=== PATIENT | female | born 1960 | race American Indian/Alaskan Native ===

== ENCOUNTER 2018-06-03 17:39 | Observation (INO) | payer MEDICAID, OTHER ==
[2018-06-03] MEDS ORDERED: Lactated Ringers 1,000 ML IV ONE (18:06)
[2018-06-03] MEDS ORDERED: Acetaminophen 500 MG Tab PO ONE (18:20)
--- NOTE | 2018-06-03 18:21 | EDM.PDOC ---
ED HPI GENERAL MEDICAL PROBLEM - General Chief Complaint: Syncope Stated Complaint: FALL/HIT HEAD, VERTIGO Time Seen by Provider: 06/03/18 18:05 Source of Information: Reports: Patient, Old Records History Limitations: Reports: Other (patient is a poor historian) - History of Present Illness INITIAL COMMENTS - FREE TEXT/NARRATIVE: 57 yo NA female with a pHx of afib on anticoagulation presents after a syncopal spell in her home. Says she almost past out several times over the past several months, but due to not being comfortable with driving hasn't made it to a doctor. Gets her care between [place] and [facility]. Came here today via a friend as it was a little closer to her home in [place]. Has hyperthyroidism and is being tx'd for that with methimazole. Has not had any changes in her medications recently and has not taken any added doses by accident. Is a light smoker, but does not drink ETOH. Hit the back of her head she thinks on the floot when she passed out today. There was no bleeding, has a mild COLEMAN now. Has no hx of NV or CVA. No hx of DM. Does have a hx of bradycardia. Onset: Sudden Onset Date: 06/03/18 Onset Time: 16:45 Duration: Other (unsure) Location: Reports: Head (hit the occiput of her scalp when she fell.) Quality: Reports: Dull Severity: Mild Improves with: Reports: None Worsens with: Reports: None Context: Reports: Other (recurrent near syncope for a few months.) Associated Symptoms: Reports: Headaches (now since hitting her head only), Syncope. Denies: Chest Pain, Fever/Chills, Nausea/Vomiting, Shortness of Breath Treatments CONSTRUCTION SUPERINTENDENT: Reports: Other (see below) (none) Right Lower Head Pain Score (Numeric/FACES): 10 - Related Data Allergies Allergy/AdvReac Type Severity Reaction Status Date / Time No Known Allergies Allergy Verified 06/03/18 17:56 Home Meds: Home Meds Cyanocobalamin (Vitamin B-12) [B-12] 500 mcg PO DAILY 06/03/18 [History] Doxepin [SINEquan] 10 mg PO BEDTIME 06/03/18 [History] Magnesium Oxide 400 mg PO DAILY 06/03/18 [History] Meclizine [Antivert] 25 mg PO Q6H PRN 06/03/18 [History] Methimazole [Tapazole] 5 mg PO DAILY 06/03/18 [History] Metoprolol Tartrate [Lopressor] 50 mg PO DAILY 06/03/18 [History] Oxybutynin [Oxybutynin ER] 5 mg PO DAILY 06/03/18 [History] Rivaroxaban [Xarelto] 20 mg PO DAILY 06/03/18 [History] Past Medical History HEENT History: Reports: Impaired Vision Cardiovascular History: Reports: Hypertension Psychiatric History: Reports: Depression - Past Surgical History Cardiovascular Surgical History: Reports: None Social & Family History - Tobacco Use Smoking Status *Q: Current Every Day Smoker Years of Tobacco use: 40 Packs/Tins Daily: 0.5 - Caffeine Use Caffeine Use: Reports: Coffee, Tea - Recreational Drug Use Recreational Drug Use: No ED ROS GENERAL - Review of Systems Review Of Systems: See Below Constitutional: Reports: No Symptoms HEENT: Reports: No Symptoms Respiratory: Reports: No Symptoms Cardiovascular: Reports: Lightheadedness Endocrine: Reports: No Symptoms GI/Abdominal: Reports: No Symptoms : Reports: No Symptoms Musculoskeletal: Reports: No Symptoms Skin: Reports: No Symptoms Neurological: Reports: Headache Psychiatric: Reports: No Symptoms - Physical Exam Exam: See Below Exam Limited By: No Limitations General Appearance: Alert, WD/WN, No Apparent Distress Eye Exam: Bilateral Eye: Normal Inspection Ears: Normal External Exam, Normal Canal, Hearing Grossly Normal, Normal TMs Nose: Normal Inspection, No Blood Throat/Mouth: Normal Inspection, Normal Lips, Normal Oropharynx, Normal Voice, No Airway Compromise Head Exam: Atraumatic, Normocephalic Neck: Normal Inspection, Supple, Non-Tender Respiratory/Chest: No Respiratory Distress, Lungs Clear, Normal Breath Sounds, No Accessory Muscle Use Cardiovascular: Regular Rate, Rhythm, No Edema, Bradycardia GI/Abdominal: Normal Bowel Sounds, Soft, Non-Tender, No Distention Neuro Exam (Abbreviated): Alert, Oriented, CN II-XII Intact, Normal Cognition, No Motor/Sensory Deficits Back Exam: Normal Inspection. No: CVA Tenderness (R), CVA Tenderness (L) Extremities: Normal Inspection, Normal Range of Motion, Non-Tender, No Pedal Edema Psychiatric: Normal Affect, Normal Mood Skin Exam: Warm, Dry, Intact, Normal Color, No Rash Course - Vital Signs Text/Narrative:: Hospitalist Janeen, here now 1921h. Last Recorded V/S: Last Vital Signs Temp 36.3 C 06/03/18 17:58 Pulse 46 L 06/03/18 17:58 Resp 16 06/03/18 17:58 BP 153/67 H 06/03/18 17:58 Pulse Ox 97 06/03/18 17:58 - Orders/Labs/Meds Orders: Active Orders 24 hr Category Date Time Status Cardiac Monitoring [RC] .As Directed Care 06/03/18 18:06 Active CULTURE URINE [RM] Stat Lab 06/03/18 18:48 Received Labs: Laboratory Tests 06/03/18 06/03/18 06/03/18 Range/Units 18:13 18:13 18:22 WBC 11.4 H (4.5-11.0) K/uL RBC 4.07 (3.30-5.50) M/uL Hgb 11.8 L (12.0-15.0) g/dL Hct 37.8 (36.0-48.0) % MCV 93 (80-98) fL MCH 29 (27-31) pg MCHC 31 L (32-36) % Plt Count 240 (150-400) K/uL Sodium (140-148) mmol/L Potassium (3.6-5.2) mmol/L Chloride (100-108) mmol/L Carbon Dioxide (21-32) mmol/L Anion Gap (5.0-14.0) mmol/L BUN (7-18) mg/dL Creatinine (0.6-1.0) mg/dL Est Cr Clr Drug Dosing mL/min Estimated GFR (MDRD) (>60) Glucose (74-106) mg/dL Calcium (8.5-10.1) mg/dL Troponin I 0.022 (0.000-0.056) ng/mL TSH, Ultra Sensitive 38.144 H (0.358-3.740) uIU/mL Urine Color Yellow Urine Appearance Slightly cloudy Urine pH 7.0 (4.5-8.0) Ur Specific [place] 1.010 (1.008-1.030) Urine Protein Negative (NEGATIVE) mg/dL Urine Glucose (UA) Normal (NEGATIVE) mg/dL Urine Ketones Negative (NEGATIVE) mg/dL Urine Occult Blood Moderate (NEGATIVE) Urine Nitrite Negative (NEGATIVE) Urine Bilirubin Negative (NEGATIVE) Urine Urobilinogen Normal (NORMAL) mg/dL Ur Leukocyte Esterase Small (NEGATIVE) Urine RBC 5-10 H (0-5) Urine WBC 5-10 H (0-5) Ur Epithelial Cells Many Amorphous Sediment Many Urine Bacteria Not seen Urine Mucus Not seen 06/03/18 Range/Units 19:05 WBC (4.5-11.0) K/uL RBC (3.30-5.50) M/uL Hgb (12.0-15.0) g/dL Hct (36.0-48.0) % MCV (80-98) fL MCH (27-31) pg MCHC (32-36) % Plt Count (150-400) K/uL Sodium 142 (140-148) mmol/L Potassium 3.8 (3.6-5.2) mmol/L Chloride 105 (100-108) mmol/L Carbon Dioxide 25 (21-32) mmol/L Anion Gap 11.6 (5.0-14.0) mmol/L BUN 13 (7-18) mg/dL Creatinine 1.0 (0.6-1.0) mg/dL Est Cr Clr Drug Dosing 57.41 mL/min Estimated GFR (MDRD) 57 L (>60) Glucose 103 (74-106) mg/dL Calcium 8.7 (8.5-10.1) mg/dL Troponin I (0.000-0.056) ng/mL TSH, Ultra Sensitive (0.358-3.740) uIU/mL Urine Color Urine Appearance Urine pH (4.5-8.0) Ur Specific [place] (1.008-1.030) Urine Protein (NEGATIVE) mg/dL Urine Glucose (UA) (NEGATIVE) mg/dL Urine Ketones (NEGATIVE) mg/dL Urine Occult Blood (NEGATIVE) Urine Nitrite (NEGATIVE) Urine Bilirubin (NEGATIVE) Urine Urobilinogen (NORMAL) mg/dL Ur Leukocyte Esterase (NEGATIVE) Urine RBC (0-5) Urine WBC (0-5) Ur Epithelial Cells Amorphous Sediment Urine Bacteria Urine Mucus Meds: Medications Discontinued Medications Generic Name Dose Route Start Last Admin Trade Name Freq PRN Reason Stop Dose Admin Acetaminophen 1,000 mg 06/03/18 18:20 Tylenol Extra Strength PO 06/03/18 18:21 ONETIME ONE Lactated Ringer's 1,000 mls @ 1,000 mls/hr 06/03/18 18:06 06/03/18 18:24 Ringers, Lactated IV 06/03/18 19:05 1,000 mls/hr BOLUS ONE Administration Departure - Departure Time of Disposition: 19:24 Disposition: Refer to Observation Condition: Fair Clinical Impression: Bradycardia, Hyperthyroidism Syncope Qualifiers: Syncope type: unspecified Qualified Code(s): R55 - Syncope and collapse - Discharge Information *PRESCRIPTION DRUG MONITORING PROGRAM REVIEWED*: No *COPY OF PRESCRIPTION DRUG MONITORING REPORT IN PATIENT ISABELLE: No Referrals: PCP,None [Primary Care Provider] - Forms: ED Department Discharge - My Orders Last 24 Hours: My Active Orders 06/03/18 18:06 Cardiac Monitoring [RC] .As Directed 06/03/18 18:48 CULTURE URINE [RM] Stat - Assessment/Plan Last 24 Hours: My Active Orders 06/03/18 18:06 Cardiac Monitoring [RC] .As Directed 06/03/18 18:48 CULTURE URINE [RM] Stat
[2018-06-03] MEDS ORDERED: HYDROmorphone 1 MG/ML Syringe IVPUSH ONE (20:03)
[2018-06-03] MEDS ORDERED: Ondansetron 4 MG/2 ML SDV IVPUSH ONE (20:03)
[2018-06-03] MEDS: Sodium Chloride 0.9% 1,000 ML IV SCH ×2 (20:35→21:16)
--- NOTE | 2018-06-03 20:49 | PCM.HP ---
H&P History of Present Illness - General Date of Service: 06/03/18 Admit Problem/Dx: Admission Diagnosis/Problem Admission Diagnosis/Problem Syncope and collapse History Limitations: Reports: No Limitations - History of Present Illness Initial Comments - Free Text/Narative: chief complaint: fainted at home and hit head. denies chest pain, shortness of breath, does feel sick to stomach without vomiting. Reports has felt like fainting for months. also has chronic vertigo, has meclizine for this. reports history of A. fib. treated Xarelto, denies any history of WA, Stroke, ablation or other intervention. Onset of Symptoms: Reports: Today (syncope at home at 5 pm), Gradual (near fainting for months) Symptom Onset Date: 06/03/18 Symptom Onset Time: 17:00 Duration of Symptoms: Reports: Hour(s):, Waxing/Waning Location: Reports: Generalized Improves with: Reports: None Worsens with: Reports: None Associated Symptoms: Reports: Headaches (from fall today at home), Nausea/ Vomiting, Shortness of Breath (reports wheezing, has a cold for the past week.) Right Lower Head Pain Score (Numeric/FACES): 10 - Related Data Allergies/Adverse Reactions: Allergies Allergy/AdvReac Type Severity Reaction Status Date / Time No Known Allergies Allergy Verified 06/03/18 17:56 Home Medications: Home Meds Cyanocobalamin (Vitamin B-12) [B-12] 500 mcg PO DAILY 06/03/18 [History] Doxepin [SINEquan] 10 mg PO BEDTIME 06/03/18 [History] Magnesium Oxide 400 mg PO DAILY 06/03/18 [History] Meclizine [Antivert] 25 mg PO Q6H PRN 06/03/18 [History] Methimazole [Tapazole] 5 mg PO DAILY 06/03/18 [History] Metoprolol Succinate [Toprol XL 50mg] 50 mg PO DAILY 06/03/18 [History] Oxybutynin [Oxybutynin ER] 5 mg PO DAILY 06/03/18 [History] Rivaroxaban [Xarelto] 20 mg PO DAILY 06/03/18 [History] Past Medical History HEENT History: Reports: Impaired Vision Cardiovascular History: Reports: Hypertension 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 has 2 children.) H&P Review of Systems - Review of Systems: Review Of Systems: See Below General: Reports: Malaise HEENT: Reports: Ear Pain (left ear drainage.), Headaches (from fall today, otherwise doesn't have headaches.) Pulmonary: Reports: No Symptoms, Other (reports a cold for the past week.) Cardiovascular: Reports: Syncope (fainted at home today at 5 pm. reports has had near fainting for months. came in to the ER because fell at home. ) Gastrointestinal: Reports: No Symptoms Genitourinary: Reports: No Symptoms Musculoskeletal: Reports: No Symptoms Skin: Reports: No Symptoms Psychiatric: Reports: Agitation (related to wait in ER, is pleasant once transfer was in place.) Neurological: Reports: Headache Hematologic/Lymphatic: Reports: Easy Bleeding, Easy Bruising Immunologic: Reports: No Symptoms Exam - Exam Exam: See Below - Vital Signs Vital Signs: Last Vital Signs Temp 36.3 C 06/03/18 17:58 Pulse 58 L 06/03/18 20:33 Resp 12 06/03/18 20:33 BP 163/61 H 06/03/18 20:33 Pulse Ox 95 06/03/18 20:33 Weight: 98.7 kg - Exam General: Alert, Oriented, Cooperative, Other (irritability noted. ) HEENT: PERRLA, Conjunctiva Clear, EACs Clear, EOMI, Hearing Intact, Mucosa Moist & [place], Nares Patent, Posterior Pharynx Clear, Pupils Equal, Pupils Reactive, TMs Clear (did not evaluate left ear due to cotton being in ear canal) Neck: Supple, Trachea Midline, Full Range of Motion Lungs: Normal Respiratory Effort, Wheezing (bilateral) Cardiovascular: Regular Rhythm, Normal S1, Normal S2, Bradycardia (rate 40's) GI/Abdominal Exam: Normal Bowel Sounds, Soft, Non-Tender (Female) Exam: Deferred Rectal (Female) Exam: Deferred Back Exam: Normal Inspection, Full Range of Motion Extremities: Normal Inspection, Normal Range of Motion, Pedal Edema (1 +) Skin: Warm, Dry, Intact Neurological: Strength Equal Bilateral, Normal Gait, Normal Speech, Normal Tone , Sensation Intact Neuro Extensive - Mental Status: Alert, Oriented x3, Normal Mood/Affect, Normal Cognition Neuro Extensive - Motor, Sensory, Reflexes: Normal Reflexes Psychiatric: Alert, Normal Affect, Normal Mood - Patient Data Lab Results Last 24 hrs: Laboratory Results - last 24 hr 06/03/18 06/03/18 06/03/18 Range/Units 18:13 18:13 18:22 WBC 11.4 H (4.5-11.0) K/uL RBC 4.07 (3.30-5.50) M/uL Hgb 11.8 L (12.0-15.0) g/dL Hct 37.8 (36.0-48.0) % MCV 93 (80-98) fL MCH 29 (27-31) pg MCHC 31 L (32-36) % Plt Count 240 (150-400) K/uL Sodium (140-148) mmol/L Potassium (3.6-5.2) mmol/L Chloride (100-108) mmol/L Carbon Dioxide (21-32) mmol/L Anion Gap (5.0-14.0) mmol/L BUN (7-18) mg/dL Creatinine (0.6-1.0) mg/dL Est Cr Clr Drug Dosing mL/min Estimated GFR (MDRD) (>60) Glucose (74-106) mg/dL Calcium (8.5-10.1) mg/dL Troponin I 0.022 (0.000-0.056) ng/mL TSH, Ultra Sensitive 38.144 H (0.358-3.740) uIU/mL Urine Color Yellow Urine Appearance Slightly cloudy Urine pH 7.0 (4.5-8.0) Ur Specific [place] 1.010 (1.008-1.030) Urine Protein Negative (NEGATIVE) mg/dL Urine Glucose (UA) Normal (NEGATIVE) mg/dL Urine Ketones Negative (NEGATIVE) mg/dL Urine Occult Blood Moderate (NEGATIVE) Urine Nitrite Negative (NEGATIVE) Urine Bilirubin Negative (NEGATIVE) Urine Urobilinogen Normal (NORMAL) mg/dL Ur Leukocyte Esterase Small (NEGATIVE) Urine RBC 5-10 H (0-5) Urine WBC 5-10 H (0-5) Ur Epithelial Cells Many Amorphous Sediment Many Urine Bacteria Not seen Urine Mucus Not seen Urine Opiates Screen (NEGATIVE) Ur Oxycodone Screen (NEGATIVE) Urine Methadone Screen (NEGATIVE) Ur Propoxyphene Screen (NEGATIVE) Ur Barbiturates Screen (NEGATIVE) Ur Tricyclics Screen (NEGATIVE) Ur Phencyclidine Scrn (NEGATIVE) Ur Amphetamine Screen (NEGATIVE) U Methamphetamines Scrn (NEGATIVE) Urine MDMA Screen (NEGATIVE) U Benzodiazepines Scrn (NEGATIVE) U Cocaine Metab Screen (NEGATIVE) U Marijuana (THC) Screen (NEGATIVE) 06/03/18 06/03/18 Range/Units 19:05 19:27 WBC (4.5-11.0) K/uL RBC (3.30-5.50) M/uL Hgb (12.0-15.0) g/dL Hct (36.0-48.0) % MCV (80-98) fL MCH (27-31) pg MCHC (32-36) % Plt Count (150-400) K/uL Sodium 142 (140-148) mmol/L Potassium 3.8 (3.6-5.2) mmol/L Chloride 105 (100-108) mmol/L Carbon Dioxide 25 (21-32) mmol/L Anion Gap 11.6 (5.0-14.0) mmol/L BUN 13 (7-18) mg/dL Creatinine 1.0 (0.6-1.0) mg/dL Est Cr Clr Drug Dosing 57.41 mL/min Estimated GFR (MDRD) 57 L (>60) Glucose 103 (74-106) mg/dL Calcium 8.7 (8.5-10.1) mg/dL Troponin I (0.000-0.056) ng/mL TSH, Ultra Sensitive (0.358-3.740) uIU/mL Urine Color Urine Appearance Urine pH (4.5-8.0) Ur Specific [place] (1.008-1.030) Urine Protein (NEGATIVE) mg/dL Urine Glucose (UA) (NEGATIVE) mg/dL Urine Ketones (NEGATIVE) mg/dL Urine Occult Blood (NEGATIVE) Urine Nitrite (NEGATIVE) Urine Bilirubin (NEGATIVE) Urine Urobilinogen (NORMAL) mg/dL Ur Leukocyte Esterase (NEGATIVE) Urine RBC (0-5) Urine WBC (0-5) Ur Epithelial Cells Amorphous Sediment Urine Bacteria Urine Mucus Urine Opiates Screen Negative (NEGATIVE) Ur Oxycodone Screen Negative (NEGATIVE) Urine Methadone Screen Negative (NEGATIVE) Ur Propoxyphene Screen Negative (NEGATIVE) Ur Barbiturates Screen Negative (NEGATIVE) Ur Tricyclics Screen Negative (NEGATIVE) Ur Phencyclidine Scrn Negative (NEGATIVE) Ur Amphetamine Screen Negative (NEGATIVE) U Methamphetamines Scrn Negative (NEGATIVE) Urine MDMA Screen Negative (NEGATIVE) U Benzodiazepines Scrn Negative (NEGATIVE) U Cocaine Metab Screen Negative (NEGATIVE) U Marijuana (THC) Screen Negative (NEGATIVE) Result Diagrams: 06/04/18 05:00 06/04/18 05:00 EKG INTERPRETATION Rhythm: Other (bradycardia rate 40's) - Problem List (1) Bradycardia SNOMED Code(s): 89490520 ICD Code: R00.1 - BRADYCARDIA, UNSPECIFIED Status: Acute Priority: High Current Visit: Yes (2) Syncope SNOMED Code(s): 851371890 ICD Code: R55 - SYNCOPE AND COLLAPSE Status: Acute Priority: High Current Visit: Yes Qualifiers: Syncope type: unspecified Qualified Code(s): R55 - Syncope and collapse (3) Urinary tract infection SNOMED Code(s): 11865148 ICD Code: N39.0 - URINARY TRACT INFECTION, SITE NOT SPECIFIED Status: Acute Priority: Medium Current Visit: Yes Qualifiers: Urinary tract infection type: acute cystitis (4) Hyperthyroidism SNOMED Code(s): 33372233 ICD Code: E05.90 - THYROTOXICOSIS, UNSP WITHOUT THYROTOXIC CRISIS OR STORM Status: Ruled-out Priority: Low Current Visit: Yes (5) Tobacco abuse SNOMED Code(s): 187363566 ICD Code: Z72.0 - TOBACCO USE Status: Chronic Priority: Medium Current Visit: Yes (6) Positional vertigo of left ear SNOMED Code(s): 726386251 ICD Code: [id number] - Status: Acute Current Visit: Yes (7) Hx of vertigo SNOMED Code(s): 387305680 ICD Code: Z87.898 - PERSONAL HISTORY OF OTHER SPECIFIED CONDITIONS Status: Chronic Current Visit: Yes (8) Traumatic hematoma of head SNOMED Code(s): 679457831 ICD Code: S00.93XA - CONTUSION OF UNSPECIFIED PART OF HEAD, INITIAL ENCOUNTER Status: Acute Priority: Low Current Visit: Yes Qualifiers: Encounter type: initial encounter Qualified Code(s): S00.93XA - Contusion of unspecified part of head, initial encounter Problem List Initiated/Reviewed/Updated: Yes Orders Last 24hrs: Active Orders 24 hr Category Date Time Status Patient Status Manage Transfer [TRANSFER] Routine ADT 06/03/18 20:07 Active Cardiac Monitoring [RC] .As Directed Care 06/03/18 18:06 Active Head wo Cont [CT] Stat Exams 06/03/18 20:04 Taken CULTURE URINE [RM] Stat Lab 06/03/18 18:48 Received Sodium Chloride 0.9% [Normal Saline] 1,000 ml Med 06/03/18 20:15 Active IV ASDIRECTED Resuscitation Status Routine Resus Stat 06/03/18 20:08 Ordered Medication Orders Sodium Chloride (Normal Saline) 1,000 mls @ 125 mls/hr IV ASDIRECTED KRYSTAL Last Admin: 06/03/18 20:35 Dose: 125 mls/hr Assessment/Plan Comment:: ASSESSMENT / PLAN: chief complaint: fainted at home and hit head. denies chest pain, shortness of breath, does feel sick to stomach without vomiting. Reports has felt like fainting for months. also has chronic vertigo, has meclizine for this. reports history of A. fib. treated Xarelto, denies any history of WA, Stroke, ablation or other intervention. labs done is ER , CBC, CMP, troponin normal range, urine drug screen negative Urine with micro;+leukocytes, +RBC, +WBC Imaging; CT Head without contrast: impression negative except for hematoma noted to scalp, chest xray pending EKG: bradycardia rate 44 plan: admit to OBS for further care and treatment. Bradycardia, Syncope collapse, history of A.Fib -telemetry -hold Metoprolol -continue Xarelto -IV fluids NS at 125ml/hr -repeat labs in am CBC,BMP UTI -IV Rocephin 1 gram every 24hours -urine culture pending Hypothyroidism -will start medication Tobacco use -decline Nicotine gum or patch Position Vertigo -continue Meclizine as needed Scalp hematoma -CT Head negative brain or skull injury -ice pack to head as needed Maintenance issues -Orders home meds: on hold -Nutrition: Regular diet -Lopez catheter not indicated at this time -DVT:Xarelto -GI Prophalaxis; Protonix 40mg daily CODE STATUS: Full Admission status: Admit to Observation -I expect this patient to stay less than 24 hours, not to exceed 96 hours for evaluation and management of this problem. Disposition: home with Primary care provider: Rosa Chaudhari [facility] Hospitalist: Dr. Castano
[2018-06-03] MEDS ORDERED: Docusate Sodium 100 MG Cap PO PRN (20:58)
[2018-06-03] MEDS ORDERED: Meclizine 25 MG Tab PO PRN (20:58)
[2018-06-03] MEDS ORDERED: Albuterol 0.083% 2.5 MG/3 ML Neb Soln NEB PRN (20:58)
[2018-06-03] MEDS ORDERED: Temazepam 15 MG Cap PO PRN (20:58)
[2018-06-03] MEDS ORDERED: LORazepam 2 MG/ML SDV IV PRN (20:58)
[2018-06-03] MEDS ORDERED: Albuterol/Ipratropium 3.0-0.5 MG/3 ML Neb Soln NEB PRN (20:58)
[2018-06-03] MEDS ORDERED: Acetaminophen 325 MG Tab PO PRN (20:58)
[2018-06-03] MEDS ORDERED: Ondansetron 4 MG Tab.DIS PO PRN (20:58)
--- NOTE | 2018-06-03 20:58 | CRLCT ---
INDICATION: Fall, headache TECHNIQUE: CT head without contrast. COMPARISON: None FINDINGS: CSF spaces: Within normal limits for age. Brain parenchyma: The montiel-white differentiation is normal. No sign of mass, hemorrhage, or midline shift. Skull base and calvarium: The visualized paranasal sinuses and mastoid air cells demonstrate no acute or significant findings. The visualized orbits are grossly unremarkable. No skull fractures. Large left parieto-occipital scalp hematoma. IMPRESSION: Large left parieto-occipital scalp hematoma with no associated fractures or evidence of acute intracranial trauma. Please note that all CT scans at this facility use dose modulation, iterative reconstruction, and/or weight-based dosing when appropriate to reduce radiation dose to as low as reasonably achievable. Dictated by Benjy Infante MD @ Jun 03 2018 8:57PM Signed by Dr. Benjy Infante @ Jun 03 2018 8:57PM
[2018-06-03] MEDS ORDERED: cefTRIAXone 1 GM in Sodium Chloride 0.9% 50 ML IV SCH (21:30)
[2018-06-03] MEDS: Doxepin 10 MG Cap PO SCH (21:37)
--- NOTE | 2018-06-03 21:54 | CRLCR ---
INDICATION: Wheezing TECHNIQUE: Chest 1 view. COMPARISON: None FINDINGS: Cardiovascular and mediastinum: Mild cardiomegaly. Mediastinum is within normal limits. Lungs and pleural space: Lungs are clear. No sign of infiltrate or mass. No sign of pleural effusion. No pneumothorax. Bones and soft tissues: No significant findings. IMPRESSION: No acute pulmonary or cardiac abnormalities. Dictated by Benjy Infante MD @ 06/03/2018 9:52:15 PM Dictated by: Benjy Infante MD @ 06/03/2018 21:52:19 (Electronically Signed)
[2018-06-04] MEDS: oxyCODONE 5 MG Tab PO PRN ×2 (03:13→18:33)
[2018-06-04] MEDS: Sodium Chloride 0.9% 1,000 ML IV SCH ×2 (03:14→11:37)
[2018-06-04] MEDS ORDERED: Methimazole 5 MG Tab PO SCH (09:00)
[2018-06-04] MEDS: Magnesium Oxide 400 MG Tab PO SCH (09:03)
[2018-06-04] MEDS: Cyanocobalamin (Vitamin B12) 1,000 MCG Tab PO SCH (09:04)
[2018-06-04] MEDS: Rivaroxaban 10 MG Tab PO SCH (09:04)
[2018-06-04] MEDS ORDERED: Metoprolol Succinate 25 MG Tab.ER PO ONE (09:15)
[2018-06-04] MEDS ORDERED: HYDROmorphone 1 MG/ML Syringe IVPUSH ONE (10:29)
--- NOTE | 2018-06-04 16:14 | PCM.PN ---
- General Info Date of Service: 06/04/18 Subjective Update: There were no acute events overnight following admission. Bradycardia did slowly improve throughout the night and by the morning after admission her heart rate is tachycardic with heart rates in the 100s. This morning she is complaining of a posterior headache where she hit her head falling backwards. No vision troubles. She does feel a little dizzy. 25 mg of metoprolol which was half of her usual dose and has been bradycardic since with heart rates around 50 + or minus a few beats. Yesterday her TSH was noted to be 38 and her free T4 this morning was 0.4. I did talk to the long lines operator covering for her usual long lines operator and he recommended holding the methimazole for several days and rechecking labs next week. Functional Status: Reports: Pain Controlled - Review of Systems General: Reports: Weakness Cardiovascular: Reports: Lightheadedness - Patient Data Vitals - Most Recent: Last Vital Signs Temp 36.2 C 06/04/18 11:43 Pulse 81 06/04/18 11:43 Resp 16 06/04/18 11:43 BP 114/78 06/04/18 11:43 Pulse Ox 96 06/04/18 13:10 Orthostatic Blood Pressure [ 124/80 Standing] Orthostatic Blood Pressure [ 126/92 Sitting] Orthostatic Blood Pressure [ 121/80 Supine] Weight - Most Recent: 98.7 kg I&O - Last 24 Hours: Intake & Output 06/04/18 06/04/18 06/04/18 06:59 14:59 22:59 Intake Total 1107 1015 420 Output Total 800 600 Balance 307 415 420 Lab Results Last 24 Hours: Laboratory Results - last 24 hr 06/03/18 06/03/18 06/03/18 Range/Units 18:13 18:13 18:22 WBC 11.4 H (4.5-11.0) K/uL RBC 4.07 (3.30-5.50) M/uL Hgb 11.8 L (12.0-15.0) g/dL Hct 37.8 (36.0-48.0) % MCV 93 (80-98) fL MCH 29 (27-31) pg MCHC 31 L (32-36) % Plt Count 240 (150-400) K/uL Neut % (Auto) (36-66) % Lymph % (Auto) (24-44) % [place] % (Auto) (2-6) % Eos % (Auto) (2-4) % Baso % (Auto) (0-1) % Sodium (140-148) mmol/L Potassium (3.6-5.2) mmol/L Chloride (100-108) mmol/L Carbon Dioxide (21-32) mmol/L Anion Gap (5.0-14.0) mmol/L BUN (7-18) mg/dL Creatinine (0.6-1.0) mg/dL Est Cr Clr Drug Dosing mL/min Estimated GFR (MDRD) (>60) Glucose (74-106) mg/dL Calcium (8.5-10.1) mg/dL Total Bilirubin (0.2-1.0) mg/dL Direct Bilirubin (0.0-0.2) mg/dL Indirect Bilirubin AST (15-37) U/L ALT (12-78) U/L Alkaline Phosphatase (46-116) U/L Troponin I 0.022 (0.000-0.056) ng/mL Total Protein (6.4-8.2) g/dL Albumin (3.4-5.0) g/dL Globulin (2.3-3.5) g/dL Albumin/Globulin Ratio (1.2-2.2) Free T4 (0.76-1.46) ng/dL TSH, Ultra Sensitive 38.144 H (0.358-3.740) uIU/mL Urine Color Yellow Urine Appearance Slightly cloudy Urine pH 7.0 (4.5-8.0) Ur Specific [place] 1.010 (1.008-1.030) Urine Protein Negative (NEGATIVE) mg/dL Urine Glucose (UA) Normal (NEGATIVE) mg/dL Urine Ketones Negative (NEGATIVE) mg/dL Urine Occult Blood Moderate (NEGATIVE) Urine Nitrite Negative (NEGATIVE) Urine Bilirubin Negative (NEGATIVE) Urine Urobilinogen Normal (NORMAL) mg/dL Ur Leukocyte Esterase Small (NEGATIVE) Urine RBC 5-10 H (0-5) Urine WBC 5-10 H (0-5) Ur Epithelial Cells Many Amorphous Sediment Many Urine Bacteria Not seen Urine Mucus Not seen Urine Opiates Screen (NEGATIVE) Ur Oxycodone Screen (NEGATIVE) Urine Methadone Screen (NEGATIVE) Ur Propoxyphene Screen (NEGATIVE) Ur Barbiturates Screen (NEGATIVE) Ur Tricyclics Screen (NEGATIVE) Ur Phencyclidine Scrn (NEGATIVE) Ur Amphetamine Screen (NEGATIVE) U Methamphetamines Scrn (NEGATIVE) Urine MDMA Screen (NEGATIVE) U Benzodiazepines Scrn (NEGATIVE) U Cocaine Metab Screen (NEGATIVE) U Marijuana (THC) Screen (NEGATIVE) 06/03/18 06/03/18 06/03/18 Range/Units 19:05 19:27 20:58 WBC (4.5-11.0) K/uL RBC (3.30-5.50) M/uL Hgb (12.0-15.0) g/dL Hct (36.0-48.0) % MCV (80-98) fL MCH (27-31) pg MCHC (32-36) % Plt Count (150-400) K/uL Neut % (Auto) (36-66) % Lymph % (Auto) (24-44) % [place] % (Auto) (2-6) % Eos % (Auto) (2-4) % Baso % (Auto) (0-1) % Sodium 142 (140-148) mmol/L Potassium 3.8 (3.6-5.2) mmol/L Chloride 105 (100-108) mmol/L Carbon Dioxide 25 (21-32) mmol/L Anion Gap 11.6 (5.0-14.0) mmol/L BUN 13 (7-18) mg/dL Creatinine 1.0 (0.6-1.0) mg/dL Est Cr Clr Drug Dosing 57.41 mL/min Estimated GFR (MDRD) 57 L (>60) Glucose 103 (74-106) mg/dL Calcium 8.7 (8.5-10.1) mg/dL Total Bilirubin 0.5 (0.2-1.0) mg/dL Direct Bilirubin 0.15 (0.0-0.2) mg/dL Indirect Bilirubin 0.35 AST 19 (15-37) U/L ALT 16 (12-78) U/L Alkaline Phosphatase 97 (46-116) U/L Troponin I (0.000-0.056) ng/mL Total Protein 7.9 (6.4-8.2) g/dL Albumin 3.6 (3.4-5.0) g/dL Globulin 4.3 H (2.3-3.5) g/dL Albumin/Globulin Ratio 0.8 L (1.2-2.2) Free T4 (0.76-1.46) ng/dL TSH, Ultra Sensitive (0.358-3.740) uIU/mL Urine Color Urine Appearance Urine pH (4.5-8.0) Ur Specific [place] (1.008-1.030) Urine Protein (NEGATIVE) mg/dL Urine Glucose (UA) (NEGATIVE) mg/dL Urine Ketones (NEGATIVE) mg/dL Urine Occult Blood (NEGATIVE) Urine Nitrite (NEGATIVE) Urine Bilirubin (NEGATIVE) Urine Urobilinogen (NORMAL) mg/dL Ur Leukocyte Esterase (NEGATIVE) Urine RBC (0-5) Urine WBC (0-5) Ur Epithelial Cells Amorphous Sediment Urine Bacteria Urine Mucus Urine Opiates Screen Negative (NEGATIVE) Ur Oxycodone Screen Negative (NEGATIVE) Urine Methadone Screen Negative (NEGATIVE) Ur Propoxyphene Screen Negative (NEGATIVE) Ur Barbiturates Screen Negative (NEGATIVE) Ur Tricyclics Screen Negative (NEGATIVE) Ur Phencyclidine Scrn Negative (NEGATIVE) Ur Amphetamine Screen Negative (NEGATIVE) U Methamphetamines Scrn Negative (NEGATIVE) Urine MDMA Screen Negative (NEGATIVE) U Benzodiazepines Scrn Negative (NEGATIVE) U Cocaine Metab Screen Negative (NEGATIVE) U Marijuana (THC) Screen Negative (NEGATIVE) 06/04/18 06/04/18 06/04/18 Range/Units 05:00 05:00 07:46 WBC 8.7 (4.5-11.0) K/uL RBC 3.73 (3.30-5.50) M/uL Hgb 10.9 L (12.0-15.0) g/dL Hct 35.0 L (36.0-48.0) % MCV 94 (80-98) fL MCH 29 (27-31) pg MCHC 31 L (32-36) % Plt Count 196 (150-400) K/uL Neut % (Auto) 58 (36-66) % Lymph % (Auto) 34 (24-44) % [place] % (Auto) 6 (2-6) % Eos % (Auto) 2 (2-4) % Baso % (Auto) 0 (0-1) % Sodium 143 (140-148) mmol/L Potassium 4.0 (3.6-5.2) mmol/L Chloride 109 H (100-108) mmol/L Carbon Dioxide 25 (21-32) mmol/L Anion Gap 13.0 (5.0-14.0) mmol/L BUN 12 (7-18) mg/dL Creatinine 0.8 (0.6-1.0) mg/dL Est Cr Clr Drug Dosing 68.97 mL/min Estimated GFR (MDRD) > 60 (>60) Glucose 94 (74-106) mg/dL Calcium 8.0 L (8.5-10.1) mg/dL Total Bilirubin (0.2-1.0) mg/dL Direct Bilirubin (0.0-0.2) mg/dL Indirect Bilirubin AST (15-37) U/L ALT (12-78) U/L Alkaline Phosphatase (46-116) U/L Troponin I (0.000-0.056) ng/mL Total Protein (6.4-8.2) g/dL Albumin (3.4-5.0) g/dL Globulin (2.3-3.5) g/dL Albumin/Globulin Ratio (1.2-2.2) Free T4 0.43 L (0.76-1.46) ng/dL TSH, Ultra Sensitive (0.358-3.740) uIU/mL Urine Color Urine Appearance Urine pH (4.5-8.0) Ur Specific [place] (1.008-1.030) Urine Protein (NEGATIVE) mg/dL Urine Glucose (UA) (NEGATIVE) mg/dL Urine Ketones (NEGATIVE) mg/dL Urine Occult Blood (NEGATIVE) Urine Nitrite (NEGATIVE) Urine Bilirubin (NEGATIVE) Urine Urobilinogen (NORMAL) mg/dL Ur Leukocyte Esterase (NEGATIVE) Urine RBC (0-5) Urine WBC (0-5) Ur Epithelial Cells Amorphous Sediment Urine Bacteria Urine Mucus Urine Opiates Screen (NEGATIVE) Ur Oxycodone Screen (NEGATIVE) Urine Methadone Screen (NEGATIVE) Ur Propoxyphene Screen (NEGATIVE) Ur Barbiturates Screen (NEGATIVE) Ur Tricyclics Screen (NEGATIVE) Ur Phencyclidine Scrn (NEGATIVE) Ur Amphetamine Screen (NEGATIVE) U Methamphetamines Scrn (NEGATIVE) Urine MDMA Screen (NEGATIVE) U Benzodiazepines Scrn (NEGATIVE) U Cocaine Metab Screen (NEGATIVE) U Marijuana (THC) Screen (NEGATIVE) Med Orders - Current: Current Medications Acetaminophen (Tylenol) 650 mg PO Q4H PRN PRN Reason: Pain (Mild 1-3)/fever Albuterol (Proventil Neb Soln) 2.5 mg NEB Q4H PRN PRN Reason: Shortness Of Breath/wheezing Albuterol/Ipratropium (Duoneb 3.0-0.5 Mg/3 Ml) 3 ml NEB QID PRN PRN Reason: Shortness Of Breath/wheezing Cyanocobalamin (Vitamin B12) 500 mcg PO DAILY [facility] Last Admin: 06/04/18 09:04 Dose: 500 mcg Docusate Sodium (Colace) 100 mg PO BID PRN PRN Reason: Constipation Doxepin HCl (Sinequan) 10 mg PO BEDTIME [facility] Last Admin: 06/03/18 21:37 Dose: Not Given Lorazepam (Ativan) 1 mg IV Q6H PRN PRN Reason: Nausea/Vomiting Magnesium Oxide (Magnesium Oxide) 400 mg PO DAILY [facility] Last Admin: 06/04/18 09:03 Dose: 400 mg Meclizine HCl (Antivert) 25 mg PO Q6H PRN PRN Reason: Dizziness Last Admin: 06/04/18 07:14 Dose: 25 mg Morphine Sulfate (Morphine) 2 mg IVPUSH Q2H PRN PRN Reason: Pain (severe 7-10) Ondansetron HCl (Zofran Odt) 4 mg PO Q6H PRN PRN Reason: Nausea able to take PO Oxycodone HCl (Oxycodone) 5 mg PO Q4H PRN PRN Reason: Pain (moderate 4-6) Last Admin: 06/04/18 03:13 Dose: 5 mg Rivaroxaban (Xarelto) 20 mg PO DAILY [facility] Last Admin: 06/04/18 09:04 Dose: 20 mg Temazepam (Restoril) 15 mg PO BEDTIME PRN PRN Reason: Insomnia Discontinued Medications Acetaminophen (Tylenol Extra Strength) 1,000 mg PO ONETIME ONE Stop: 06/03/18 18:21 Last Admin: 06/04/18 07:33 Dose: Not Given Hydromorphone HCl (Dilaudid) 1 mg IVPUSH ONETIME ONE Stop: 06/03/18 20:04 Last Admin: 06/03/18 20:36 Dose: 1 mg Hydromorphone HCl (Dilaudid) 1 mg IVPUSH ONETIME ONE Stop: 06/04/18 10:30 Last Admin: 06/04/18 11:38 Dose: 1 mg Lactated Ringer's (Ringers, Lactated) 1,000 mls @ 1,000 mls/hr IV BOLUS ONE Stop: 06/03/18 19:05 Last Admin: 06/03/18 18:24 Dose: 1,000 mls/hr Sodium Chloride (Normal Saline) 1,000 mls @ 125 mls/hr IV ASDIRECTED [facility] Last Admin: 06/04/18 11:37 Dose: 125 mls/hr Ceftriaxone Sodium 1 gm/ (Sodium Chloride) 50 mls @ 100 mls/hr IV BEDTIME [facility] Last Admin: 06/03/18 21:34 Dose: 100 mls/hr Methimazole (Methimazole) 5 mg PO DAILY [facility] Last Admin: 06/04/18 09:03 Dose: 5 mg Metoprolol Succinate (Toprol Xl) 25 mg PO ONETIME ONE Stop: 06/04/18 09:16 Last Admin: 06/04/18 09:16 Dose: 25 mg Ondansetron HCl (Zofran) 4 mg IVPUSH ONETIME ONE Stop: 06/03/18 20:04 Last Admin: 06/03/18 20:40 Dose: 4 mg - Exam Quality Assessment: No: Supplemental Oxygen General: Alert, Oriented, Cooperative, No Acute Distress HEENT: Pupils Equal Neck: Supple Lungs: Normal Respiratory Effort GI/Abdominal Exam: Soft, No Distention Extremities: No Pedal Edema Psy/Mental Status: Alert, Normal Affect - Problem List Review Problem List Initiated/Reviewed/Updated: Yes - My Orders Last 24 Hours: My Active Orders 06/04/18 14:14 Convert IV to Saline Lock [OM.PC] Routine - Plan Plan:: ASSESSMENT / PLAN: Bradycardia, Syncope collapse - patient is in chronic atrial fibrillation. I suspect the bradycardia is related to her metoprolol. Dose was decreased but she continues to be bradycardic so the dose may need to be decreased further or possibly even discontinued. Probably some contribution from her hypothyroidism as discussed below. -telemetry -Readdress metoprolol dosing in the morning -continue Xarelto -Saline lock IV History of Graves' disease - on long-term suppression with methimazole. Thyroid studies currently suggests significant hypothyroidism. Case was discussed with her long lines operator. They recommended holding the methimazole and rechecking labs next week. -discontinue methimazole Tobacco dependence - light smoker -decline Nicotine gum or patch Scalp hematoma - mild headache from the head trauma and probable mild concussion with increased dizziness compared to baseline. -ice pack to head as needed Maintenance issues -Nutrition: Regular diet -Lopez catheter not indicated at this time -DVT: Xarelto -GI Prophalaxis; Protonix 40mg daily CODE STATUS: Full Admission status: Admit to Observation -I expect this patient to stay less than 24 hours, not to exceed 96 hours for evaluation and management of this problem. Disposition: I would anticipate discharge to home tomorrow Primary care provider: Rosa Chaudhari M.D.
[2018-06-04] MEDS: Morphine 2 MG/ML Syringe IVPUSH PRN (19:30)
[2018-06-04] MEDS ORDERED: HYDROmorphone 1 MG/ML Syringe IVPUSH PRN (20:25)
[2018-06-04] MEDS: Doxepin 10 MG Cap PO SCH (21:18)
[2018-06-05] MEDS: Morphine 2 MG/ML Syringe IVPUSH PRN (02:27)
[2018-06-05] MEDS: oxyCODONE 5 MG Tab PO PRN (08:02)
[2018-06-05] MEDS: Rivaroxaban 10 MG Tab PO SCH (08:46)
[2018-06-05] MEDS: Cyanocobalamin (Vitamin B12) 1,000 MCG Tab PO SCH (08:47)
[2018-06-05] MEDS: Magnesium Oxide 400 MG Tab PO SCH (08:47)
[2018-06-05] MEDS ORDERED: Ketorolac 30 MG/ML SDV IVPUSH ONE (09:45)
--- NOTE | 2018-06-05 13:38 | PCM.DCSUM1 ---
Discharge Summary - Hospital Course Brief History: 57-year-old female with history of Graves' disease on methimazole for suppression, paroxysmal atrial fibrillation and tobacco dependence who presented after an episode of syncope at home that resulted in posterior head trauma. She is admitted for observation and management of bradycardia, hypothyroidism and probable concussion. Diagnosis: Stroke: No - Discharge Data Discharge Date: 06/05/18 Discharge Disposition: Home, Self-Care 01 Condition: Fair - Discharge Diagnosis/Problem(s) (1) Syncope SNOMED Code(s): 621610200 ICD Code: R55 - SYNCOPE AND COLLAPSE Status: Acute Priority: High Current Visit: Yes Qualifiers: Syncope type: unspecified Qualified Code(s): R55 - Syncope and collapse (2) Bradycardia SNOMED Code(s): 14306486 ICD Code: R00.1 - BRADYCARDIA, UNSPECIFIED Status: Acute Priority: High Current Visit: Yes (3) Traumatic hematoma of head SNOMED Code(s): 763728621 ICD Code: S00.93XA - CONTUSION OF UNSPECIFIED PART OF HEAD, INITIAL ENCOUNTER Status: Acute Priority: Low Current Visit: Yes Qualifiers: Encounter type: initial encounter Qualified Code(s): S00.93XA - Contusion of unspecified part of head, initial encounter (4) Paroxysmal atrial fibrillation SNOMED Code(s): 867047412 ICD Code: I48.0 - PAROXYSMAL ATRIAL FIBRILLATION Status: Chronic Current Visit: Yes (5) Graves disease SNOMED Code(s): 293484866 ICD Code: E05.00 - THYROTOXICOSIS W DIFFUSE GOITER W/O THYROTOXIC CRISIS Status: Chronic Current Visit: Yes (6) Acquired hypothyroidism SNOMED Code(s): 335143479 ICD Code: E03.9 - HYPOTHYROIDISM, UNSPECIFIED Status: Acute Current Visit : Yes - Patient Summary/Data Hospital Course: Jeanne presented to the emergency room after an episode of syncope at home. She collapsed and fell backwards striking her head on the hard floor. Head CT was obtained which showed a posterior scalp hematoma but no evidence for intracranial bleeding. Laboratory workup was remarkable for a TSH of 38 and later a free T4 of 0.4. She was also noted to be in atrial fibrillation and had a ventricular rate of around 40. She was admitted to the hospital for observation to monitor her heart rate as well as further workup and management of her hypothyroidism and concussion. Her metoprolol was held with her bradycardia and by the morning after admission her heart rate had risen to more than 100. We started her on a half dose of her metoprolol but she very quickly became bradycardic in the 40s again. We discontinued the metoprolol at this point. More than 24 hours after her last dose her heart rate is hanging out around 50-60. She has not had recurrence of her presyncope or syncope symptoms. I suspect the bradycardia is a combination of her hypothyroidism as well as her metoprolol therapy. I recommended that we discontinue the metoprolol least for the time being until her thyroid is straightened out. Regarding her thyroid, her TSH was noted to be significantly elevated and her free T4 was low. She is on methimazole to manage Graves' disease. I discussed the case with the endocrinology team in [place] and they recommended holding the methimazole for several days and rechecking her laboratory studies at that time. Her heart rate has been stable throughout the day without metoprolol and off of the methimazole. Symptomatically she feels fairly well other than the headache from this morning as discussed below. At the time of discharge the plan is for her to go home without metoprolol and without methimazole until follow-up later this week. As mentioned above, the patient had a fall and did have head trauma. There is no evidence for bleeding but she likely sustained a concussion. She had difficulty with a posterior headache throughout the hospital stay. I suspect this was related to a tension type headache with significant muscle spasm in both trapezius muscles. This responded well to a trial of heat pad as well as Toradol. The patient will be going home with a prescription for Toradol for up to 5 days as well as muscle relaxers to use sparingly. She is comfortable with this plan. She is safe and stable for discharge home at this time. - Patient Instructions Diet: Regular Diet as Tolerated Activity: As Tolerated Showering/Bathing: May Shower Notify Provider of: Fever, Increased Pain, Nausea and/or Vomiting Other/Special Instructions: 1. You were in the hospital for further workup of syncope as well as management of a head trauma that resulted in a concussion. The trauma to your head and neck has led to a significant muscle spasm in your upper back/neck. I would recommend that you utilize a heating pad every 2-4 hours to help the muscles relax. I have provided a prescription for ketorolac ( Toradol) which you can take every 6 hours as needed for neck pain/discomfort. I have also provided a prescription for tizanidine (Zanaflex). This is a muscle relaxer that you can take every 6 hours as needed for muscle spasms. This medication may cause sleepiness so you should take it while you are in a comfortable place until you get used to the medication. 2. During your work up in the emergency room we discovered that you have a slow heart rate. I suspect this is due to a combination of low thyroid function as discussed below as well as the medication metoprolol. Your heart rate has been on the low side of normal without any medication and I would recommend that we discontinue the metoprolol, at least for now. You should follow-up with your primary care in several days to ensure that your heart rate has remained stable without the medication. 3. We tested your thyroid function in the emergency room and discomfort that you are now hypothyroid rather than hyperthyroid with your Graves' disease. I discussed the case with your endocrinology team and they recommended that you stop taking methimazole for several days. You should have your thyroid studies rechecked in about 5 days at the [facility] in [place]. 4. Continue your other home medications as previously prescribed. 5. Follow up with Dr Locke as scheduled later in June. You. 6. Seek medical attention if Fever greater than 101, severe pain in your head or neck not controlled with your usual medications or if you have recurrence of the syncope. - Discharge Plan *PRESCRIPTION DRUG MONITORING PROGRAM REVIEWED*: No *COPY OF PRESCRIPTION DRUG MONITORING REPORT IN PATIENT ISABELLE: No Prescriptions/Med Rec: Ketorolac [Toradol] 10 mg PO Q6H PRN #20 tab PRN Reason: neck pain tiZANidine 2 mg PO Q6H #20 cap Home Medications: Home Meds Cyanocobalamin (Vitamin B-12) [B-12] 500 mcg PO DAILY 06/03/18 [History] Doxepin [SINEquan] 10 mg PO BEDTIME 06/03/18 [History] Magnesium Oxide 400 mg PO DAILY 06/03/18 [History] Meclizine [Antivert] 25 mg PO Q6H PRN 06/03/18 [History] Oxybutynin [Oxybutynin ER] 5 mg PO DAILY 06/03/18 [History] Rivaroxaban [Xarelto] 20 mg PO DAILY 06/03/18 [History] Ketorolac [Toradol] 10 mg PO Q6H PRN #20 tab 06/05/18 [Rx] tiZANidine 2 mg PO Q6H #20 cap 06/05/18 [Rx] Oxygen Therapy Mode: Room Air Patient Handouts: Muscle Cramps and Spasms, [id number], Tizanidine tablets or capsules Referrals: Suraj Locke MD [Ordering Only Provider] - 06/23/18 10:15 am (Please arrive 15 minutes early to register for appointment.) - Discharge Summary/Plan Comment DC Time >30 min.: No - Patient Data Vitals - Most Recent: Last Vital Signs Temp 35.9 C 06/05/18 11:49 Pulse 44 L 06/05/18 11:49 Resp 16 06/05/18 11:49 BP 126/56 L 06/05/18 11:49 Pulse Ox 93 L 06/05/18 13:21 Orthostatic Blood Pressure [ 124/80 Standing] Orthostatic Blood Pressure [ 126/92 Sitting] Orthostatic Blood Pressure [ 121/80 Supine] Weight - Most Recent: 98.7 kg I&O - Last 24 hours: Intake & Output 06/04/18 06/05/18 06/05/18 22:59 06:59 14:59 Intake Total 1420 Output Total 1400 150 Balance 20 -150 KINZA Results - Last 24 hrs: Microbiology 06/03/18 18:48 Urine Culture - Preliminary Urine, Clean Catch MIXED POSITIVE SCARLETT DAY 1 06/04/18 20:17 Influenza Type A Antigen Screen - Final Nasal, Unspecified NEGATIVE INFLUENZA A VIRUS AG Influenza Type B Antigen Screen - Final NEGATIVE INFLUENZA B VIRUS AG Med Orders - Current: Current Medications Albuterol (Proventil Neb Soln) 2.5 mg NEB Q4H PRN PRN Reason: Shortness Of Breath/wheezing Albuterol/Ipratropium (Duoneb 3.0-0.5 Mg/3 Ml) 3 ml NEB QID PRN PRN Reason: Shortness Of Breath/wheezing Last Admin: 06/04/18 19:27 Dose: 3 ml Cyanocobalamin (Vitamin B12) 500 mcg PO DAILY [facility] Last Admin: 06/05/18 08:47 Dose: 500 mcg Docusate Sodium (Colace) 100 mg PO BID PRN PRN Reason: Constipation Doxepin HCl (Sinequan) 10 mg PO BEDTIME [facility] Last Admin: 06/04/18 21:18 Dose: 10 mg Hydromorphone HCl (Dilaudid) 1 mg IVPUSH Q4H PRN PRN Reason: Pain Lorazepam (Ativan) 1 mg IV Q6H PRN PRN Reason: Nausea/Vomiting Magnesium Oxide (Magnesium Oxide) 400 mg PO DAILY [facility] Last Admin: 06/05/18 08:47 Dose: 400 mg Meclizine HCl (Antivert) 25 mg PO Q6H PRN PRN Reason: Dizziness Last Admin: 06/04/18 07:14 Dose: 25 mg Morphine Sulfate (Morphine) 2 mg IVPUSH Q2H PRN PRN Reason: Pain (severe 7-10) Last Admin: 06/05/18 02:27 Dose: 2 mg Ondansetron HCl (Zofran Odt) 4 mg PO Q6H PRN PRN Reason: Nausea able to take PO Oxycodone HCl (Oxycodone) 5 mg PO Q4H PRN PRN Reason: Pain (moderate 4-6) Last Admin: 06/05/18 08:02 Dose: 5 mg Rivaroxaban (Xarelto) 20 mg PO DAILY [facility] Last Admin: 06/05/18 08:46 Dose: 20 mg Temazepam (Restoril) 15 mg PO BEDTIME PRN PRN Reason: Insomnia Discontinued Medications Acetaminophen (Tylenol Extra Strength) 1,000 mg PO ONETIME ONE Stop: 06/03/18 18:21 Last Admin: 06/04/18 07:33 Dose: Not Given Acetaminophen (Tylenol) 650 mg PO Q4H PRN PRN Reason: Pain (Mild 1-3)/fever Hydromorphone HCl (Dilaudid) 1 mg IVPUSH ONETIME ONE Stop: 06/03/18 20:04 Last Admin: 06/03/18 20:36 Dose: 1 mg Hydromorphone HCl (Dilaudid) 1 mg IVPUSH ONETIME ONE Stop: 06/04/18 10:30 Last Admin: 06/04/18 11:38 Dose: 1 mg Lactated Ringer's (Ringers, Lactated) 1,000 mls @ 1,000 mls/hr IV BOLUS ONE Stop: 06/03/18 19:05 Last Admin: 06/03/18 18:24 Dose: 1,000 mls/hr Sodium Chloride (Normal Saline) 1,000 mls @ 125 mls/hr IV ASDIRECTED [facility] Last Admin: 06/04/18 11:37 Dose: 125 mls/hr Ceftriaxone Sodium 1 gm/ (Sodium Chloride) 50 mls @ 100 mls/hr IV BEDTIME [facility] Last Admin: 06/03/18 21:34 Dose: 100 mls/hr Ketorolac Tromethamine (Toradol) 30 mg IVPUSH ONETIME ONE Stop: 06/05/18 09:46 Last Admin: 06/05/18 11:05 Dose: 30 mg Methimazole (Methimazole) 5 mg PO DAILY [facility] Last Admin: 06/04/18 09:03 Dose: 5 mg Metoprolol Succinate (Toprol Xl) 25 mg PO ONETIME ONE Stop: 06/04/18 09:16 Last Admin: 06/04/18 09:16 Dose: 25 mg Ondansetron HCl (Zofran) 4 mg IVPUSH ONETIME ONE Stop: 06/03/18 20:04 Last Admin: 06/03/18 20:40 Dose: 4 mg - Exam Quality Assessment: Denies: Supplemental Oxygen General: Reports: Alert, Oriented, Cooperative, No Acute Distress Lungs: Reports: Normal Respiratory Effort Cardiovascular: Reports: Regular Rhythm, Bradycardia GI/Abdominal Exam: Soft, No Distention Extremities: No Pedal Edema Psy/Mental Status: Reports: Alert, Normal Affect
== END 2018-06-05 14:38 | disposition home or self-care (01) ==
LOC: JP.ED 17:39 → JP.MS 20:07
PROVIDERS: ADMIT Internal Medicine; ATTEND Internal Medicine
DX: R55 Syncope and collapse (principal); R00.1 Bradycardia, unspecified; S00.03XA Contusion of scalp, initial encounter; N39.0 Urinary tract infection, site not specified; I48.0 Paroxysmal atrial fibrillation; I10 Essential (primary) hypertension; E03.9 Hypothyroidism, unspecified; E05.00 Thyrotoxicosis with diffuse goiter without thyrotoxic crisis or storm; F32.9 Major depressive disorder, single episode, unspecified; F17.200 Nicotine dependence, unspecified, uncomplicated; H81.12 Benign paroxysmal vertigo, left ear; W19.XXXA Unspecified fall, initial encounter; Z79.01 Long term (current) use of anticoagulants; Z79.899 Other long term (current) drug therapy
CPT/HCPCS: 36415; 70450; 71045; 80048; 80076; 80305; 81001; 84439; 84443; 84484; 85025; 85027; 87086; 87804; 94640; 94762; 96361; 96365; 96375; 96376; 99285; A9270; G0378; J0696; J1170; J1885; J2270; J2405; J7030; J7050; J7120; 96374; J7620-GY

== ENCOUNTER 2018-06-10 15:19 | Emergency (ER) | payer MEDICAID ==
[2018-06-10] MEDS ORDERED: Scopolamine 1.5 MG Transdermal Patch TRDERM PRN (17:23)
--- NOTE | 2018-06-10 17:29 | EDM.PDOC ---
<FlanneryMurielDomitila - Last Filed: 06/10/18 17:24> ED HPI GENERAL MEDICAL PROBLEM - General Chief Complaint: General Stated Complaint: DIZZY/NOT FEELING GOOD Time Seen by Provider: 06/10/18 16:03 Source of Information: Reports: Patient History Limitations: Reports: No Limitations - History of Present Illness INITIAL COMMENTS - FREE TEXT/NARRATIVE: Jeanne Bowers is a 57 year old female who presents to the ED with concerns of chronic dizziness that has been worse over the course of today. Symptoms are constant. She states that resting, walking and turning her head exacerbates the dizziness. She says that she has attempted treatment with Ketorolac, Tizanidine , and Meclizine, with minimal relief. She fell one week ago and was admitted to the hospital. She says since then she has had a decreased appetite due to nausea. She says she feels the room is spinning. She denies changes in bowel, changes in urination, chest pain, vomiting and abdominal pain. She states she does feel like her lower extremities go numb during the dizzy spells. She states she has an appointment with her regular physician tomorrow. Further symptoms are denied at this time. denies Pain Score (Numeric/FACES): 0 - Related Data Allergies Allergy/AdvReac Type Severity Reaction Status Date / Time No Known Allergies Allergy Verified 06/10/18 15:49 Home Meds: Home Meds Cyanocobalamin (Vitamin B-12) [B-12] 500 mcg PO DAILY 06/03/18 [History] Doxepin [SINEquan] 10 mg PO BEDTIME 06/03/18 [History] Magnesium Oxide 400 mg PO DAILY 06/03/18 [History] Meclizine [Antivert] 25 mg PO Q6H PRN 06/03/18 [History] Oxybutynin [Oxybutynin ER] 5 mg PO DAILY 06/03/18 [History] Rivaroxaban [Xarelto] 20 mg PO DAILY 06/03/18 [History] Ketorolac [Toradol] 10 mg PO Q6H PRN #20 tab 06/05/18 [Rx] tiZANidine 2 mg PO Q6H #20 cap 06/05/18 [Rx] Past Medical History HEENT History: Reports: Impaired Vision Cardiovascular History: Reports: Afib, Hypertension [employer]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 , Neurological History: Reports: Concussion Psychiatric History: Reports: Depression Endocrine/Metabolic History: Reports: Obesity/BMI 30+, Other (See Below) Other Endocrine/Metabolic History: graves - Infectious Disease History Infectious Disease History: Reports: Chicken Pox - Past Surgical History Cardiovascular Surgical History: Reports: None Neurological Surgical History: Reports: None Dermatological Surgical History: Reports: None Social & Family History - Tobacco Use Smoking Status *Q: Former Smoker Years of Tobacco use: 30 Packs/Tins Daily: 0.2 Used Tobacco, but Quit: Yes Month/Year Tobacco Last Used: june 2018 Second Hand Smoke Exposure: No - Caffeine Use Caffeine Use: Reports: Coffee, Soda, Tea - Recreational Drug Use Recreational Drug Use: No - Living Situation & Occupation Living situation: Reports: , with Family (lives with in [place], [place]. has 2 children.) ED ROS GENERAL - Review of Systems Review Of Systems: ROS reveals no pertinent complaints other than HPI. ED EXAM, GENERAL - Physical Exam Exam: See Below Exam Limited By: No Limitations General Appearance: Alert, Mild Distress Ears: Normal External Exam, Normal Canal, Other (Hearing loss of left ear) Nose: Normal Inspection, Normal Mucosa Throat/Mouth: Normal Inspection, Normal Lips, Normal Teeth, Normal Gums, Normal Oropharynx Head: Atraumatic, Normocephalic Neck: Supple, Other (Skin surrounding left ear is bruised from prior fall. Neck is tender to palpation due to fall.) Respiratory/Chest: No Respiratory Distress, Lungs Clear, No Accessory Muscle Use Cardiovascular: No Edema, Other (Atrial Fibrillation is present) GI/Abdominal: Soft, Non-Tender Back Exam: Normal Inspection Extremities: Normal Inspection, Non-Tender, No Pedal Edema Neurological: Alert, Oriented, No Motor/Sensory Deficits, Other (PERRLA, AOM's were slightly delayed. Patient was unable to perfrom accomodation. Memory intact. ) Psychiatric: Flat Affect Skin Exam: Ecchymosis (present around left ear and extending down to the neck area ) Course - Vital Signs Last Recorded V/S: Last Vital Signs Temp 96.4 F 06/10/18 15:59 Pulse 51 L 06/10/18 17:05 Resp 14 06/10/18 17:05 BP 121/47 L 06/10/18 17:05 Pulse Ox 96 06/10/18 17:05 - Orders/Labs/Meds Orders: Active Orders 24 hr Category Date Time Status Scopolamine [Transderm-Scop] Med 06/10/18 17:23 Active 1.5 mg TRDERM Q72H PRN Medication Orders Scopolamine (Transderm-Scop) 1.5 mg TRDERM Q72H PRN PRN Reason: Nausea Last Admin: 06/10/18 17:35 Dose: 1.5 mg Meds: Medications Generic Name Dose Route Start Last Admin Trade Name Freq PRN Reason Stop Dose Admin Scopolamine 1.5 mg 06/10/18 17:23 06/10/18 17:35 Transderm-Scop TRDERM 1.5 mg Q72H PRN Administration Nausea Departure - Departure Disposition: Home, Self-Care 01 Clinical Impression: Concussion syndrome - Discharge Information Referrals: PCP,None [Primary Care Provider] - Forms: ED Department Discharge Additional Instructions: Try the scopolamine patch, please follow-up with your primary care provider tomorrow for further evaluation, call return to the emergency department worsening of symptoms - My Orders Last 24 Hours: My Active Orders 06/10/18 17:23 Scopolamine [Transderm-Scop] 1.5 mg TRDERM Q72H PRN - Assessment/Plan Last 24 Hours: My Active Orders 06/10/18 17:23 Scopolamine [Transderm-Scop] 1.5 mg TRDERM Q72H PRN <Isaias Garcia - Last Filed: 06/10/18 17:39> ED HPI GENERAL MEDICAL PROBLEM - History of Present Illness INITIAL COMMENTS - FREE TEXT/NARRATIVE: Discharge diagnosis of concussion ED EXAM, GENERAL - Physical Exam Free Text/Narrative:: Agree with below Departure - Departure Time of Disposition: 17:38 Condition: Fair - Assessment/Plan Plan: Assessment Acuity = acute Site and laterality = concussion syndrome Etiology = secondary to a fall Manifestations = exacerbation of dizziness Location of injury = Home Lab values = none Plan Try scopolamine patch she does have follow-up appointment with her primary care tomorrow Isaias Rojas MD was personally available for consultation in the ED. I have reviewed the chart and agree with the documentation as recorded by the ROBYN Newman, including the assessment, treatment plan and disposition. Isaias Rojas MD personally saw and examined the patient. I have reviewed and agree with the PA Student's findings. This note was dictated using [employer] voice recognition software please call with any questions on syntax or grammar.
== END 2018-06-10 17:44 | disposition home or self-care (01) ==
LOC: JP.ED 15:19
DX: F07.81 Postconcussional syndrome (principal); I48.91 Unspecified atrial fibrillation; I10 Essential (primary) hypertension; F32.9 Major depressive disorder, single episode, unspecified; Z87.891 Personal history of nicotine dependence; Z79.899 Other long term (current) drug therapy
CPT/HCPCS: 99283; A9270

== ENCOUNTER 2018-08-07 08:39 | Emergency (ER) | payer MEDICAID ==
[2018-08-07] MEDS ORDERED: Lactated Ringers 1,000 ML IV ONE (09:25)
[2018-08-07] MEDS ORDERED: Diazepam 5 MG Tab PO ONE (09:26)
--- NOTE | 2018-08-07 09:32 | EDM.PDOC ---
ED HPI GENERAL MEDICAL PROBLEM - General Chief Complaint: General Stated Complaint: DIZZY Time Seen by Provider: 08/07/18 09:20 Source of Information: Reports: Patient, Old Records, RN History Limitations: Reports: No Limitations - History of Present Illness INITIAL COMMENTS - FREE TEXT/NARRATIVE: 58 yo female presents with worsening of dizziness that she has been experiencing since a concussion in late May. She has been prescribed a scopolamine patch. Is due for a PT eval/tx in [place] this next week. Has nausea but no vomiting. Dizziness worse with standing or turning her head. No black or bloody stools or diarrhea. No reported COLEMAN. Did have a head CT scan at time of initial injury. Onset: Gradual Onset Date: 06/03/18 Duration: Week(s):, Getting Worse Location: Reports: Head Quality: Reports: Other (no pain reported) Severity: Moderate Improves with: Reports: None Worsens with: Reports: Movement Context: Reports: Other (See HPI) Associated Symptoms: Reports: Nausea/Vomiting (no vomiting). 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) (See HPI) - Related Data Allergies Allergy/AdvReac Type Severity Reaction Status Date / Time No Known Allergies Allergy Verified 06/10/18 15:49 Home Meds: Home Meds Cyanocobalamin (Vitamin B-12) [B-12] 500 mcg PO DAILY 06/03/18 [History] Doxepin [SINEquan] 10 mg PO BEDTIME PRN 06/03/18 [History] Magnesium Oxide 400 mg PO DAILY 06/03/18 [History] Meclizine [Antivert] 25 mg PO Q6H PRN 06/03/18 [History] Oxybutynin [Oxybutynin ER] 5 mg PO DAILY 06/03/18 [History] Rivaroxaban [Xarelto] 20 mg PO DAILY 06/03/18 [History] Scopolamine [Transderm-Scop] 1 patch TD Q3D 08/07/18 [History] tiZANidine 2 mg PO Q6H PRN 08/07/18 [History] Past Medical History HEENT History: Reports: Impaired Vision Cardiovascular History: Reports: Afib, Hypertension 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 , Neurological History: Reports: Concussion Psychiatric History: Reports: Depression Endocrine/Metabolic History: Reports: Hypothyroidism, Obesity/BMI 30+, Other ( See Below) Other Endocrine/Metabolic History: graves - Infectious Disease History Infectious Disease History: Reports: Chicken Pox - Past Surgical History Head Surgeries/Procedures: Reports: None Cardiovascular Surgical History: Reports: None Neurological Surgical History: Reports: None Dermatological Surgical History: Reports: None Social & Family History - Family History Family Medical History: Noncontributory - Tobacco Use Smoking Status *Q: Current Every Day Smoker Years of Tobacco use: 45 Packs/Tins Daily: 0.2 - Caffeine Use Caffeine Use: Reports: Coffee - Recreational Drug Use Recreational Drug Use: No - Living Situation & Occupation Living situation: Reports: , with Family (lives with in [place], [place]. has 2 children.) ED ROS GENERAL - Review of Systems Review Of Systems: See Below Constitutional: Reports: No Symptoms HEENT: Reports: No Symptoms Respiratory: Reports: No Symptoms Cardiovascular: Reports: No Symptoms Endocrine: Reports: No Symptoms GI/Abdominal: Reports: Nausea. Denies: Black Stool, Bloody Stool, Hematochezia , Melena, Vomiting : Reports: No Symptoms Musculoskeletal: Reports: No Symptoms Skin: Reports: No Symptoms Neurological: Reports: Dizziness Psychiatric: Reports: No Symptoms ED EXAM, GENERAL - Physical Exam Exam: See Below Exam Limited By: No Limitations General Appearance: Alert, WD/WN, No Apparent Distress Eye Exam: Bilateral Eye: Normal Inspection Ears: Normal External Exam, Normal Canal, Hearing Grossly Normal, Normal TMs Ear Exam: Bilateral Ear: Auricle Normal, Canal Normal, TM normal Nose: Normal Inspection, No Blood Throat/Mouth: Normal Inspection, Normal Lips, Normal Oropharynx, Normal Voice, No Airway Compromise Head: Atraumatic, Normocephalic Neck: Normal Inspection Respiratory/Chest: No Respiratory Distress, Lungs Clear, Normal Breath Sounds, No Accessory Muscle Use, Chest Non-Tender Cardiovascular: Regular Rate, Rhythm, No Edema GI/Abdominal: Normal Bowel Sounds, Soft, Non-Tender, No Distention Back Exam: Normal Inspection. No: CVA Tenderness (R), CVA Tenderness (L) Extremities: Normal Inspection, Normal Range of Motion, Non-Tender, No Pedal Edema Neurological: Alert, Oriented, CN II-XII Intact, Normal Cognition, No Motor/ Sensory Deficits Psychiatric: Normal Affect, Normal Mood Skin Exam: Warm, Dry, Intact, Normal Color, No Rash Lymphatic: No Adenopathy Course - Vital Signs Last Recorded V/S: Last Vital Signs Temp 36.1 C 08/07/18 09:22 Pulse 81 08/07/18 09:22 Resp 22 H 08/07/18 09:22 BP 122/45 L 08/07/18 09:22 Pulse Ox 96 08/07/18 09:22 - Orders/Labs/Meds Orders: Active Orders 24 hr Category Date Time Status Orthostatic Vital Signs [RC] ASDIRECTED Care 08/07/18 09:26 Inactive Labs: Laboratory Tests 08/07/18 08/07/18 08/07/18 Range/Units 09:39 09:39 10:18 WBC 8.2 (4.5-11.0) K/uL RBC 4.97 (3.30-5.50) M/uL Hgb 13.5 D (12.0-15.0) g/dL Hct 43.0 (36.0-48.0) % MCV 87 (80-98) fL MCH 27 (27-31) pg MCHC 31 L (32-36) % Plt Count 276 (150-400) K/uL Sodium 141 (140-148) mmol/L Potassium 3.8 (3.6-5.2) mmol/L Chloride 105 (100-108) mmol/L Carbon Dioxide 23 (21-32) mmol/L Anion Gap 12.6 (5.0-14.0) mmol/L BUN 12 (7-18) mg/dL Creatinine 0.9 (0.6-1.0) mg/dL Est Cr Clr Drug Dosing 63.01 mL/min Estimated GFR (MDRD) > 60 (>60) Glucose 99 (74-106) mg/dL Calcium 9.5 D (8.5-10.1) mg/dL Urine Color Yellow Urine Appearance Clear Urine pH 6.0 (4.5-8.0) Ur Specific [place] 1.005 L (1.008-1.030) Urine Protein Negative (NEGATIVE) mg/dL Urine Glucose (UA) Normal (NEGATIVE) mg/dL Urine Ketones Negative (NEGATIVE) mg/dL Urine Occult Blood Trace (NEGATIVE) Urine Nitrite Negative (NEGATIVE) Urine Bilirubin Negative (NEGATIVE) Urine Urobilinogen Normal (NORMAL) mg/dL Ur Leukocyte Esterase Negative (NEGATIVE) Urine RBC 0-5 (0-5) Urine WBC 0-5 (0-5) Ur Epithelial Cells Rare Amorphous Sediment Not seen Urine Bacteria Rare Urine Mucus Not seen Meds: Medications Discontinued Medications Generic Name Dose Route Start Last Admin Trade Name Sanjuana PRN Reason Stop Dose Admin Diazepam 5 mg 08/07/18 09:26 08/07/18 09:44 Valium. PO 08/07/18 09:27 5 mg ONETIME ONE Administration Lactated Ringer's 1,000 mls @ 1,000 mls/hr 08/07/18 09:25 08/07/18 10:08 Ringers, Lactated IV 08/07/18 10:24 1,000 mls/hr BOLUS ONE Administration - Re-Assessments/Exams Free Text/Narrative Re-Assessment/Exam: 08/07/18 10:44 Much less dizzy after the diazepam. Departure - Departure Time of Disposition: 11:00 Disposition: Home, Self-Care 01 Condition: Good Clinical Impression: Dizziness - Discharge Information *PRESCRIPTION DRUG MONITORING PROGRAM REVIEWED*: No *COPY OF PRESCRIPTION DRUG MONITORING REPORT IN PATIENT ISABELLE: No Instructions: Dizziness Referrals: PCP,None [Primary Care Provider] - Forms: ED Department Discharge Additional Instructions: Add diazepam as needed to your current medications. Follow up with your provider this next week for recheck. No driving when taking diazepam. - My Orders Last 24 Hours: My Active Orders 08/07/18 09:26 Orthostatic Vital Signs [RC] ASDIRECTED - Assessment/Plan Last 24 Hours: My Active Orders 08/07/18 09:26 Orthostatic Vital Signs [RC] ASDIRECTED
== END 2018-08-07 11:10 | disposition home or self-care (01) ==
LOC: JP.ED 08:39
DX: R42 Dizziness and giddiness (principal); I10 Essential (primary) hypertension; I48.91 Unspecified atrial fibrillation; F32.9 Major depressive disorder, single episode, unspecified; E03.9 Hypothyroidism, unspecified; F17.210 Nicotine dependence, cigarettes, uncomplicated; Z79.899 Other long term (current) drug therapy
CPT/HCPCS: 36415; 80048; 81001; 85027; 96360; 99283; A9270; J7120